=== PATIENT | female | born 1990 | race Caucasian/White ===

== ENCOUNTER 2023-02-17 21:53 | Outpatient (REF) | payer BC, SELFPAY ==
[2023-02-17 22:10] LABS: Bacteria Moderate HPF (Negative); Epithelial Cells Few HPF (Negative); RBC 0-2 HPF (0-2); WBC 0-2 HPF (0-5)
[2023-02-17 22:11] LABS: C & S Indicated? C&S Done As Ordered; Casts Negative LPF (Negative); Crystals Few Calcium Oxalate HPF (Negative); Mucus Moderate (Negative)
== END 2023-02-17 21:54 | disposition home or self-care (01) ==
LOC: LBN 21:53
PROVIDERS: Visit Provider Physician Assistant Medical
DX: Z13.9 Encounter for screening, unspecified (principal)
CPT/HCPCS: 81015; 87086

== ENCOUNTER 2023-02-20 18:57 | Emergency (ER) | payer BC, SELFPAY ==
[2023-02-20 18:56] VITALS: BP 124/89; PULSE 85; RESP 18; TEMP 37.2; O2SAT 96
--- NOTE | 2023-02-20 20:34 | ED.GENADUL_ITS ---
Discharge Plan Disposition Patient Disposition: Home Condition: Stable Discharge Details Clinical Impression: Bipolar 1 disorder Primary Care Provider: Unknown,Unknown ED Provider: Theresa Phan Medical Decision Making 32-year-old female presenting from the [facility] bed, [facility] chest, alert, oriented, soft- spoken, appears anxious, experiencing some posttraumatic stress disorder which she has had previously and does not want to inconvenience anyone at the care bed she reports She is fully alert and oriented here, she is not reporting any pain complaints, I spoke with Guerita at [facility] care bed and they did transfer patient at her request but would love to take her and return transfer at her discretion As patient does not have any medical complaints, she was encouraged to speak with the provider at the care bed this evening and to reassess Abilify in the morning with her advanced practitioner She remains alert, oriented, no acute distress with stable vitals She will be transferred back to the [facility] bed and circuit stable condition with stable vitals HPI General Date/Time Provider Initiated Documentation: 02/20/23 19:14 . HPI Narrative: 32-year-old female presenting from the care bed at her request for assessment. Started on Abilify 2 days ago and states she feels like she is in a cloud . States she feels very sad and does not want to inconvenience anyone. She is at the care bed but did not want to bother individual working the evening. Denies any attempts to harm self or others. Denies any suicidal or homicidal ideation. Denies any auditory visual hallucinations. Denies illicit drug use or chance of . Denies any specific complaints. General Stated Complaint: PsychEval JONATHAN: 2 PFSH All Active Problems (Updated 02/20/23 @ 20:37 by TL Joel) Bipolar 1 disorder (Acute) Social History Smoking/Tobacco Use Status: Never Smoking risk assessment performed?: Yes Alcohol Intake: never Substance use type: does not use Housing: other Do you feel safe at home: Yes Do you feel safe in your relationship?: Yes Course Vital Signs Vital signs: Vital Signs Temperature 37.2 C 02/20/23 18:56 Pulse 85 02/20/23 18:56 Respiratory Rate 18 02/20/23 18:56 Blood Pressure 124/89 02/20/23 18:56 Pulse Oximetry 96 02/20/23 18:56 Temperature 37.2 C 02/20/23 18:56 Temperature Source Skin 02/20/23 18:56 Pulse 85 02/20/23 18:56 Respiratory Rate 18 02/20/23 18:56 Respiratory Effort Normal 02/20/23 19:01 Blood Pressure 124/89 02/20/23 18:56 Blood Pressure Position Sitting 02/20/23 18:56 Pulse Oximetry 96 02/20/23 18:56 Pain Level 0 02/20/23 20:10
== END 2023-02-20 20:22 | disposition home or self-care (01) ==
PROVIDERS: Emergency Provider Physician Assistant
DX: F31.9 Bipolar disorder, unspecified (principal)
CPT/HCPCS: 99281; 99282

== ENCOUNTER 2023-02-21 15:42 | Emergency (ER) | payer BC, SELFPAY ==
[2023-02-21 15:34] VITALS: BP 134/88; PULSE 79; RESP 20; TEMP 37.1; O2SAT 99
--- NOTE | 2023-02-21 15:45 | RT.EKG_ITS ---
APPROVED REPORT Exam: Resting ECG Reason for Exam: Convulsions Patient Location: E HR:84 bpm ECG Measurements Heart Rate 84 AXIS WV 122 P 43 QRSd 87 QRS 69 QT 379 T 1 QTc 448 Conclusion Sinus rhythm...normal P axis, V-rate 60- 99 Narrow complex normal sinus rhythm at a rate of 84. Normal axis. Intervals within normal limits. N o ST segment abnormalities. No T wave inversions. No acute injury pattern. No prior for comparison .
--- NOTE | 2023-02-21 15:48 | ED.GENADUL_ITS ---
Discharge Plan Discharge Details Chief Complaint: Seizure Clinical Impression: Convulsions, Suicidal ideation, Chest pain, unspecified Primary Care Provider: Unknown,Unknown ED Provider: Ramos Grace Home Meds and New Rx's Prescriptions: No Action hydroxyzine HCl 25 mg tablet 25 mg PO BID aripiprazole [Abilify] 5 mg tablet 5 mg PO DAILY HPI General Date/Time Provider Initiated Documentation: 02/21/23 15:48 . HPI Narrative: MDM This is an overall very well-appearing normothermic and not tachycardic 32-year-old female with convulsions chest pain and suicidal ideation. No loss of bowel or bladder control to suggest seizure and no history of malignancy and so doubt brain metastasis. No history history of seizures nor antiseizure medications, so my suspicion is low for new onset seizures given no postictal phase and no loss of bowel or bladder control. Patient is neurologically intact so my suspicion is low for CVA so I do not feel that she would be a tPA candidate nor would require an MRI. No ongoing convulsions and low suspicion for seizures and no indication for EEG. No fevers nor nuchal rigidity to suggest meningitis. Given chest pain will obtain ECG and troponin. We will also have patient seen by crisis team given suicidal ideation. my suspicion is low for acute electrolyte abnormalities since patient has not been nauseous nor vomiting however given concern for convulsions will obtain a TSH and magnesium along with basic labs and CBC. No pain out of proportion to suggest necrotizing soft tissue infection. Patient is a GCS of [address] scan at this point time. It is certainly possible that the patient could have had syncope. He denies black or bloody stools so my suspicion is low for acute GI bleed. No history of family sudden cardiac . Her reported convulsions and decreased consciousness did not occur with activity. I considered PE however the patient is PERC negative and not complaining of shortness of breath. Patient will require new med reconciliation. I have ordered her regular diet on the safety tray. In the setting of syncope I considered: High risk features: 1. Age of the patient (elderly a greatest risk) 2. Syncope during exertion 3. Family history of sudden [place] syncope rule: 1. History of CHF 2. Hematocrit < 30 3. EKG abnormalities 4. Present shortness of breath 5. Systolic blood pressure less than 90 Cardiac arrhythmia/EKG or abnormalities considered: 1. ACS: No ST changes 2. Tachy-danielle: No blocks 3. WPW: No delta wave 4. Brugada: No RSR'; R-bundle appearance 5. HCM: No LVH; needle Qs/ T-wave inversions 6. Short/ Long QT: 300 < QTc < 500; no family hx 7. Arrhythmogenic Right Ventricular Dysplasia: No epsilon wave, no inverted Ts in anterior precordium 4:33 PM I ordered this patient her home hydroxyzine and her aripiprazole. CBC lacks anemia thrombocytopenia and leukocytosis. Madai from in the patient's care bed called and reported that the patient was talking throughout her episode of convulsions. I signed patient out to pending chest x-ray laboratory ev aluation and mental health evaluation. Given her low risk HEAR score and resolved chest pain I have ordered a single troponin. HEART SCORE Chest pain Diagnostic Protocol: [-History/Physical/Gestalt: Slightly Suspicious (0)] [-EKG: Normal and/or unchanged from prior EKG (0)] [-AGE: less than 45 (0)] [-RISK FACTORS: No known risk factors (0)] - TOTAL SCORE: 0 - Risk Factors: DM, current or recent smoker, HTN, HLD, family hx of CAD, obesity - INTERPRETATION: With a total score of 3 or less, risk of major cardiac event within six weeks 1.7%, likely lower with two negative troponins. Chronic conditions affecting the care of the patient: Bipolar disorder History obtained from an outside historian: Paramedics External record review: No [facility] [place] [Diagnostic interpretations performed by me:] [Per my independent interpretation EKG shows:] Narrow complex normal sinus rhythm at a rate of 84. Normal axis. Intervals within normal limits. No ST segment abnormalities. No T wave inversions. No acute injury pattern. No prior for comparison. Medications: Home medications ordered Social determinants of health affecting disposition: N/A Management discussed with: Dr. Hughes Treatment/interventions considered: CT head but deferred given intact neurological status Response to therapies provided: N/A HPI This is a 32-year-old female with a history of bipolar disorder coming from the care bed in the setting of concern for convulsions. Patient reports she was rolling down the hill with her sister. She subsequently felt dizzy. She then went inside and was attempting to pain. She recalls sitting down and reports that she began shaking and having convulsions. Her sister laid her down. She is not sure whether or not she hit her head. She denies routine tobacco, ethanol, and illicits. She takes hydroxyzine and aripiprazole. She did not bite her tongue or lose control of her bowels nor bladder. She is not on any antiseizure medications. She had a similar episode in 2019 when she went into the [place] and had some shaking. She endorses thoughts of self-harm. Exam General: Well-appearing in no acute distress speaking in complete sentences. Head: Normocephalic, atraumatic. Eye:[Pupils equal, round reactive to light.] Extraocular eye movements intact. No conjunctival injection. No scleral icterus. Ear, nose, mouth, throat: Grossly normal inspection. Normal voice, handling secretions normally. No hemotympanum bilaterally Neck: Trachea midline. Cardiovascular: Well-perfused distal extremities. Respiratory: Nonlabored respiration. Gastrointestinal: Nondistended abdomen. Musculoskeletal: No edema. Moving all 4 extremities spontaneously. Skin: Normal for age and race, grossly normal temperature and turgor. No acute rash. Neurologic: Alert and appropriate, no apparent acute deficits. GCS 15. Cranial nerves II through XII intact grossly. No dysmetria nor dysdiadochokinesia. Psychiatric: Flat affect. No pressured speech. Grooming appropriate. No flight of ideas. Positive suicidal ideation. Related Data Home Medications Medication Instructions Recorded Confirmed aripiprazole 5 mg tablet (Abilify) 5 mg PO DAILY 02/21/23 02/21/23 hydroxyzine HCl 25 mg tablet 25 mg PO BID 02/21/23 02/21/23 Allergies Allergy/AdvReac Type Severity Reaction Status Date / Time metronidazole Allergy Intermediate Diarrhea Unverified 02/21/23 16:22 General Stated Complaint: Seizure JONATHAN: 2 PFSH All Active Problems (Updated 02/21/23 @ 16:30 by Ramos Grace MD) Chest pain, unspecified (Acute) Suicidal ideation (Acute) Convulsions (Acute) Bipolar 1 disorder (Acute) Social History Smoking/Tobacco Use Status: Never Smoking risk assessment performed?: Yes Alcohol Intake: never Substance use type: does not use Housing: other Do you feel safe at home: Yes Do you feel safe in your relationship?: Yes Course Vital Signs Vital signs: Vital Signs Temperature 37.1 C 02/21/23 15:34 Pulse 79 02/21/23 15:34 Respiratory Rate 20 02/21/23 15:34 Blood Pressure 134/88 02/21/23 15:34 Pulse Oximetry 99 02/21/23 15:34 Temperature 37.1 C 02/21/23 15:34 Temperature Source Oral 02/21/23 15:34 Pulse 79 02/21/23 15:34 Respiratory Rate 20 02/21/23 15:34 Respiratory Effort Normal 02/21/23 15:40 Respiratory Depth Normal 02/21/23 15:40 Respiratory Pattern Normal 02/21/23 15:40 Blood Pressure 134/88 02/21/23 15:34 Blood Pressure Position Sitting 02/21/23 15:34 Pulse Oximetry 99 02/21/23 15:34 Oxygen Delivery Method Room Air 02/21/23 15:34 Oxygen Flow Rate 0 02/21/23 15:34
[2023-02-21 16:26] LABS: Abs Immature Grans 0.03 10^3/uL (0.0-0.06); Absolute Basophil Count 0.04 10^3/uL (0.0-0.2); Absolute Eosinophil Count 0.04 10^3/uL (0.0-0.7); Absolute Lymphocyte Count 2.13 10^3/uL (1.2-3.4); Absolute Neutrophil Count 7.02 10^3/uL (1.2-6.7); Basophils % 0.4; Eosinophils % 0.4; HCT 45.1 % (36.0-46.0); HGB 15.2 g/dL (11.2-15.7); Immature Grans % 0.3; MCHC 33.7 % (32.0-36.0); MCV 86 fL (80-95); MPV 9.8 fL (8.0-11.0); Monocytes % 8.9; Platelet Count 284 10^3/uL (130-400); RBC 5.24 10^6/uL (3.93-5.22); RDW 12.3 % (11.7-14.6); RDW-SD 38.8 fL; WBC 10.16 10^3/uL (4.4-10.8)
--- NOTE | 2023-02-21 16:30 | DI.RAD_ITS ---
Exam(s) XR CHEST 2V PA LATERAL EXAM: XR CHEST 2V PA LATERAL CLINICAL HISTORY: Chest pain TECHNIQUE: 2D digital imaging was performed. COMPARISON: No exams were available for comparison FINDINGS: HEART: Normal size. Aorta: Not dilated. PULMONARY VASCULATURE: Normal. LUNGS: Clear. PLEURAL SPACE: No pleural effusion or pneumothorax. BONE:Unremarkable for age. IMPRESSION: No acute abnormality. DATA REPOSITORY: RADIATION DOSE DELIVERED:
[2023-02-21 16:47] LABS: TSH (W/Ref FT4) 1.98 uIU/mL (0.36-3.74)
[2023-02-21 16:53] LABS: HCG Qual (Serum) Negative
[2023-02-21 17:01] LABS: Bilirubin Negative (Negative); Blood Trace-intact (Negative); Clarity Clear (Clear); Glucose Negative (Negative); Ketones 15 mg/dL (Negative); Leukocyte Esterase Negative (Negative); Nitrite Negative (Negative); Specific Gravity 1.025 (1.005-1.025); Urobilinogen 0.2 mg/dL (Up to 0.2); pH 6.5 (5-8)
[2023-02-21] MEDS: hydrOXYzine HCL 25 MG TAB PO (17:07)
--- NOTE | 2023-02-21 17:14 | NUR.NOTE ---
Nursing Note: RN asked patient when she was alone if it was alright to share her information with her while visitors were in the room and she stated that it was okay.
[2023-02-21 17:15] LABS: Anion Gap 11.2 mmol/L (3-11); BUN 12 mg/dL (7-18); CO2 24.8 mmol/L (21.0-32.0); CREATININE 0.9 mg/dL (0.55-1.02); Calcium 9.6 mg/dL (8.5-10.1); Chloride 104 mmol/L (98-107); ETHANOL BLOOD < 3.0 mg/dL (<10); Glucose 101 mg/dL (74-106); Magnesium 2.4 mg/dL (1.8-2.4); Potassium 3.4 mmol/L (3.5-5.1); Sodium 140 mmol/L (136-145); Troponin I < 50 ng/L (<or=60)
[2023-02-21 17:17] LABS: Bacteria Few HPF (Negative); C & S Indicated? No/Sq. Contamination; Crystals Negative HPF (Negative); Epithelial Cells Many HPF (Negative); Mucus Heavy (Negative); RBC 0-2 HPF (0-2); WBC 0-2 HPF (0-5)
--- NOTE | 2023-02-21 17:25 | W.EDPROG ---
Date of service: 02/21/23 Time of Service: 17:25 Medical Decision Making I have received signout. We are awaiting labs. I have seen and evaluated the patient. She has had a questionable seizure in the past when she went into the [facility] and had a loss of consciousness/amnesia. She did have a follow-up with neurology and an EEG which did not show a definitive seizure waveform. I will obtain a noncontrast head CT to rule out intracranial hemorrhage or increased intracranial pressure. The patient states she bit her lip but her lower lip shows no evidence of acute traumatic injury. Differential Diagnosis Differential Diagnosis: Seizure,/pseudoseizure Medical Records Medical records reviewed: Yes I reviewed the patient's medical records. Imaging Data Radiologic Study: Imaging: CT Scan (Noncontrast head CT) Radiologist's impression: No acute intracranial process. Lab Data Lab results reviewed: Yes I reviewed the patient's lab results. Lab results narrative: Normal white count slight left shift mild hypokalemia normal electrolytes normal TSH negative qualitative hCG. Urine revealed small ketones and trace blood but no leukocyte esterase or nitrite Exam Narrative Exam Narrative: Please see the previous chart. The exam is essentially negative. She is alert and oriented her GCS is 15. There are no focal neurologic deficits. Discharge Plan Disposition Patient Disposition: Home Discharge Details Clinical Impression: Convulsions, Chest pain, unspecified, Bipolar 1 disorder Primary Care Provider: Ramos Arroyo ED Provider: Chasidy Hughes Home Meds and New Rx's Prescriptions: No Action hydroxyzine HCl 25 mg tablet 25 mg PO BID aripiprazole [Abilify] 5 mg tablet 5 mg PO DAILY Discharge Instructions Instructions: Chest Pain (ED), Nonepileptic Seizures (DC), Generalized Tonic Clonic Seizures (ED) Additional Instructions: 1. Return here if you start to feel more depressed or suicidal, or for any new or worrisome symptoms.. 2. You will be contacted by the neurologist for a follow-up appointment to reevaluate for epileptic and nonepileptic seizures. You should not drive, swim or bathe alone, climb ladders or participate in any activities which could injure you if you had another seizure. Discharge Data Discharge Date/Time-TO BE ENTERED AT DEPARTURE: 02/21/23 19:57 Discharge Physician: Chasidy Hughes
--- NOTE | 2023-02-21 17:45 | DI.CT_ITS ---
Exam(s) CT HEAD WO EXAM: CT HEAD WO CLINICAL HISTORY: ?seizure. TECHNIQUE: Imaging Protocol: Axial computed tomography images with coronal and sagittal reformatted images were created and reviewed COMPARISON: No exams were available for comparison FINDINGS: Ventricles and Extra axial spaces: Normal in size and morphology for the patient's age. Hemorrhage: None. Cerebral parenchyma: No evidence of acute infarct or mass. Midline shift: None. Brainstem/Cerebellum: Normal. Calvarium: Normal. Visualized Paranasal sinuses/Mastoids: Clear. Soft Tissues: Unremarkable. IMPRESSION: No acute intracranial process. RADIATION DOSE DELIVERED: Total DLP DATA REPOSITORY: All CT scans at this facility are submitted to the National Radiology Data Registry (NRDR) Dose Index Registry (DIR) with the [employer] ([employer]). RADIATION OPTIMIZATION: All CT scans at this facility use at least one of these dose optimization te chniques: automated exposure control; mA and/or kV adjustment per patient size (includes targeted exa ms where dose is matched to clinical indication); or iterative reconstruction.
--- NOTE | 2023-02-21 18:59 | NUR.NOTE ---
Referral to Care Management to authorize rct ride back to care bed. Patient's nd visit to ED.Nursing Note:
[2023-02-21 19:55] VITALS: BP 135/68; PULSE 88; RESP 18; TEMP 36.8; O2SAT 99
--- NOTE | 2023-02-21 20:12 | NUR.NOTE ---
Referral faxed to [facility] for one week f/u for possible seizure.Nursing Note:
== END 2023-02-21 19:57 | disposition home or self-care (01) ==
PROVIDERS: Emergency Medicine; Emergency Provider Emergency Medicine Emergency Medical Services; PCP Family Medicine
DX: R07.9 Chest pain, unspecified (principal); R56.9 Unspecified convulsions; F31.9 Bipolar disorder, unspecified
CPT/HCPCS: 00123; 80048; 80307; 81025; 93005; 99283; 70450; 71046; 80320; 80329; 81003; 81015; 83735; 84443; 84484; 84703; 85025; 93010